=== PATIENT | female | born 1965 | race Asian ===

== ENCOUNTER 2023-04-24 08:39 | Outpatient (RCR) | payer OTHER | END 2023-04-26 | disposition home or self-care (01) | LOC: MKS.ESL.PT | DX: M25.569 Pain in unspecified knee (principal) ==

== ENCOUNTER 2023-05-30 09:53 | Outpatient (RCR) | payer OTHER ==
[2023-06-08] MEDS ORDERED: IRON18 MG1 (18:01)
[2023-06-08] MEDS ORDERED: PREMARIN 0.60.625 M1 PO (18:02)
[2023-06-08] MEDS ORDERED: VITAMIN C500 MG PO (18:02)
[2023-06-08] MEDS ORDERED: WOMEN'S DAILY1 TAB PO (18:02)
[2023-06-09] MEDS ORDERED: IRON TABLETS325 MG PO (10:03)
[2023-06-10] MEDS ORDERED: CEPHALEXIN500 M1 PO (12:00)
== END 2023-06-25 | disposition home or self-care (01) ==
LOC: MKS.ESL.PT
DX: M25.561 Pain in right knee (principal); M25.562 Pain in left knee

== ENCOUNTER 2023-06-08 10:46 | Inpatient (IN) | payer OTHER ==
[~2023-06-08] VITALS: Ht 160 cm; Wt 54.0 kg
[2023-06-08] MEDS ORDERED: IRON18 MG1 (18:01)
[2023-06-08] MEDS ORDERED: VITAMIN C500 MG PO (18:02)
[2023-06-08] MEDS ORDERED: PREMARIN 0.60.625 M1 PO (18:02)
[2023-06-08] MEDS ORDERED: WOMEN'S DAILY1 TAB PO (18:02)
[2023-06-08 18:13] VITALS: BP 117/71; PULSE 39; TEMP 97.7
[2023-06-08 18:14] VITALS: BP_SYST 117
[2023-06-08] MEDS ORDERED: Ondansetron 4 MG/2 ML VIAL IV PRN (18:30)
[2023-06-08] MEDS ORDERED: Acetaminophen 500 MG TAB PO PRN (18:30)
[2023-06-08 19:00] VITALS: BP 118/64; PULSE 42; TEMP 97.8
[2023-06-08] MEDS ORDERED: NS 1,000 ML IV SCH (19:00)
[2023-06-08 20:00] VITALS: BP_SYST 118
[2023-06-08] MEDS ORDERED: Iohexol 350 - 100 ML VIAL IV ONE (20:55)
[2023-06-08] MEDS ORDERED: NS 50 ML IV SCH (20:55)
[2023-06-09] VITALS (18 sets, daily range): BP systolic 113–911; BP diastolic 69–82; PULSE 38–70; TEMP 97.6–98.3
--- NOTE | 2023-06-09 02:52 | NUR ---
Patient lying in bed, alert and oriented x4. pt denies chest pain, shortness of breath, and dizziness/lightheadedness. IV in LAC is patent, site is clean dry and intact with NS running at 150 ml/hr. no remarkable sking findings noted. ambulating with steady gait. npo at midnight, pt verbally understood. pt has no further needs, questions, or concerns at this time. call light within reach. will continue to monitor.
[2023-06-09 06:51] LABS: BASO % 0.8 % (0.0-2.0); EOS # 0.1 K/mm3 (0.0-0.7); EOS % 3.2 % (0.0-4.0); GRAN # 1.4 K/mm3 (1.4-6.5); GRAN % 36.9 % (42.2-75.2); LYMPH % 53.2 % (20.0-51.0); MEAN CELL VOLUME 93 fl (80.0-100.0); MEAN CORPUSCULAR HEMOGLOBIN 31 pg (27-31); MEAN CORPUSCULAR HGB CONC 33 g/dl (33.0-37.0); MEAN PLATELET VOLUME 10.2 fl (7.4-10.4); MONO # 0.2 K/mm3 (0.1-0.6); MONO % 5.9 % (1.7-9.3); PLATELET COUNT 149 K/mm3 (130-400); RED BLOOD COUNT 3.58 M/mm3 (4.10-5.30); REDCELL DISTRIBUTION WIDTH-CV 12.7 % (11.5-14.5)
[2023-06-09 06:57] LABS: HEMATOCRIT 33.2 % (37.0-47.0)
[2023-06-09 07:06] LABS: CALCIUM 8.5 mg/dL (8.4-10.2); CREATININE, serum 0.77 mg/dL (0.57-1.11); MAGNESIUM 1.9 mg/dL (1.6-2.6); PHOSPHOROUS 3.5 mg/dL (2.3-4.7); POTASSIUM 3.7 mmol/L (3.5-4.5)
[2023-06-09] MEDS ORDERED: Influenza Virus Vaccine, Quad '23-24 (6 MOS+) 0.5 ML SYRINGE IM SCH (09:00)
--- NOTE | 2023-06-09 09:10 | NUR ---
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 She and Technical Communication Teacher spoke of our Physicians and Cardiologists at [facility] and Technical Communication Teacher assured her she is in good hands. Patient was receptive to prayer, her Nick joined us in praying for healing for "August". Technical Communication Teacher wished her well as she thanked Technical Communication Teacher for prayer. Technical Communication Teacher will keep patient in her prayers.
--- NOTE | 2023-06-09 09:56 | NUR ---
patient has an episode of heart rate of 26 per telecommunications line mechanic call. patient is laying in bed, denies pain but expresses a mild headache. Charanjit from cardiology was called about the consult and also notified of the episode of heart rate of 26.
[2023-06-09] MEDS ORDERED: IRON TABLETS325 MG PO (10:03)
--- NOTE | 2023-06-09 10:08 | NUR ---
Assembler Tractor met with patient to discuss discharge planning. Patient lives in [place] with her , Nick (ph#[phone]) and their son, Marcus and his . Patient goes to [facility] for primary care and medications. Patient does not use any DME and is independent with [facility]. Patient is able to drive herself to medical appointments. Patient was interested in completing DPOA-[facility]. SW assisted patient in completing the form and she chose to designate her , Nick then her son, Marcus. SW placed a copy in patient's chart, then provided the original and copies to patient. Discharge Plan: Home
[2023-06-09] MEDS ORDERED: 1/2 NS 1,000 ML IV SCH (12:45)
[2023-06-09] MEDS ORDERED: ceFAZolin 1 G in Water For Injection,Sterile 10 ML IV SCH ×2 (12:45→15:10)
--- NOTE | 2023-06-09 13:31 | NUR ---
Refer to [facility] Report for procedural sedation/notes
[2023-06-09] MEDS ORDERED: Topical Skin Adhesive 1 EACH (1 ML) TOP ONE (13:36)
[2023-06-09] MEDS ORDERED: fentaNYL 50 MCG/ML 2 ML VIAL IV SCH (13:50)
[2023-06-09] MEDS ORDERED: Midazolam 2 MG/2 ML VIAL IV SCH (13:51)
--- NOTE | 2023-06-09 23:40 | NUR ---
PT ALERT AND OREINTED. DENIES ANY SIGNIFICANT PAIN BESIDES SOME ACHINESS WHERE THE PACEMAKER WAS IMPLANTED. WANTS TO KNOW IF SHE WILL BE ABLE TO GO HOME TOMOROW. VSS, SHIFT ASSESSMENT COMPLE, MEDICATED PER EMAR. RESTING IN BED COMFORTABLY. DENIES FURTHER NEED AT THIS TIME. CALL LIGHT WITHIN REACH.
[2023-06-10 01:00] VITALS: BP_SYST 116
[2023-06-10 03:23] VITALS: BP 120/75; PULSE 56; TEMP 98.2
[2023-06-10 05:37] VITALS: BP_SYST 120
[2023-06-10 07:00] LABS: BASO % 0.7 % (0.0-2.0); EOS # 0.2 K/mm3 (0.0-0.7); EOS % 3.7 % (0.0-4.0); GRAN # 2.3 K/mm3 (1.4-6.5); GRAN % 52.5 % (42.2-75.2); HEMOGLOBIN 11.8 g/dl (12.5-16.0); LYMPH # 1.6 K/mm3 (1.2-3.4); LYMPH % 36.1 % (20.0-51.0); MEAN CELL VOLUME 90 fl (80.0-100.0); MEAN CORPUSCULAR HEMOGLOBIN 31 pg (27-31); MEAN CORPUSCULAR HGB CONC 35 g/dl (33.0-37.0); MONO # 0.3 K/mm3 (0.1-0.6); MONO % 6.8 % (1.7-9.3); PLATELET COUNT 150 K/mm3 (130-400); REDCELL DISTRIBUTION WIDTH-CV 12.2 % (11.5-14.5)
[2023-06-10 07:05] VITALS: BP 112/74; PULSE 65; TEMP 97.7
[2023-06-10 07:08] LABS: HEMATOCRIT 34.2 % (37.0-47.0)
[2023-06-10 07:19] LABS: CREATININE, serum 0.77 mg/dL (0.57-1.11); POTASSIUM 3.6 mmol/L (3.5-4.5)
[2023-06-10 08:51] VITALS: BP_SYST 112
[2023-06-10 11:00] VITALS: BP 97/57; PULSE 60; PULSE 601; TEMP 97.7
[2023-06-10] MEDS ORDERED: CEPHALEXIN500 M1 PO (12:00)
--- NOTE | 2023-06-10 12:30 | NUR ---
PATIENT RECIEVED ALL DISCHARGE PAPERWORK INCLUDING FOLLOW UP APPOINTMENTS, NEW MEDICATIONS, AND PACEMAKER SITE CARE. PATIENT UNDERSTANDS. IV DISCONTINUED TELEMETRY DISCONTINUED.
[2023-06-10] MEDS ORDERED: Cephalexin 500 MG CAP PO SCH (21:00)
== END 2023-06-10 12:59 | disposition home or self-care (01) | DRG 244 ==
LOC: EDSTATUS 10:46 → MEDICAL 16:29
PROVIDERS: Nurse Practitioner Family; ADMIT Internal Medicine
PROC: 0JH606Z Insertion of Pacemaker, Dual Chamber into Chest Subcutaneous Tissue and Fascia, Open Approach (ICD-10-PCS; principal; 2023-06-09)
PROC: 02H63JZ Insertion of Pacemaker Lead into Right Atrium, Percutaneous Approach (ICD-10-PCS; 2023-06-09)
PROC: 02HK3JZ Insertion of Pacemaker Lead into Right Ventricle, Percutaneous Approach (ICD-10-PCS; 2023-06-09)
DX: I49.5 Sick sinus syndrome (principal); N60.19 Diffuse cystic mastopathy of unspecified breast; I34.0 Nonrheumatic mitral (valve) insufficiency; H52.10 Myopia, unspecified eye; D50.9 Iron deficiency anemia, unspecified; Z79.899 Other long term (current) drug therapy; Z90.710 Acquired absence of both cervix and uterus; Z91.018 Allergy to other foods; Z88.8 Allergy status to other drugs, medicaments and biological substances
CPT/HCPCS: OP; C1769; C1785; C1894; C1898; G0378; G0379; J0665-JZ; J0690; J1650; J2250; J3010; J7030; Q9967